=== PATIENT | female | born 1970 | race Caucasian/White ===

== ENCOUNTER → 2023-07-10 | Outpatient (CLI) | payer OTHER | END | disposition home or self-care (01) | LOC: MAMMO 07-04 10:30 → CT 07-04 11:00 → MAMMO 00:57 | PROVIDERS: ATTEND Family Medicine | DX: Z12.31 Encounter for screening mammogram for malignant neoplasm of breast (principal); J43.9 Emphysema, unspecified; I25.10 Atherosclerotic heart disease of native coronary artery without angina pectoris ==

== ENCOUNTER → 2024-07-14 | Outpatient (CLI) | payer OTHER | END | disposition home or self-care (01) | LOC: CT 09:00 | PROVIDERS: ATTEND Family Medicine | DX: Z12.2 Encounter for screening for malignant neoplasm of respiratory organs (principal); F17.210 Nicotine dependence, cigarettes, uncomplicated; I25.10 Atherosclerotic heart disease of native coronary artery without angina pectoris; R91.8 Other nonspecific abnormal finding of lung field ==

== ENCOUNTER → 2024-08-10 | Outpatient (CLI) | payer OTHER | END | disposition home or self-care (01) | LOC: MAMMO 09:30 | PROVIDERS: ATTEND Family Medicine | DX: Z12.31 Encounter for screening mammogram for malignant neoplasm of breast (principal); R92.30 Dense breasts, unspecified ==

== ENCOUNTER 2024-09-25 23:30 | Emergency (ER) | payer OTHER ==
[~2024-09-25] VITALS: Ht 152.4 cm; Wt 60.8 kg
[2024-09-26] MEDS ORDERED: Ketorolac Tromethamine 30 MG/ML VIAL IM ONE (00:20)
[2024-09-26] MEDS ORDERED: MELOXICAM15 MG PO (03:02)
== END 2024-09-26 03:31 | disposition home or self-care (01) ==
LOC: ED 23:30
DX: M25.531 Pain in right wrist (principal); R22.31 Localized swelling, mass and lump, right upper limb